=== PATIENT | female | born 1980 | race Caucasian/White ===

== ENCOUNTER 2018-12-28 20:14 | Emergency (ER) | payer OTHER ==
[~2018-12-28] VITALS: Ht 167.6 cm; Wt 81.6 kg
[2018-12-28 20:20] VITALS: BP_SYST 168
--- NOTE | 2018-12-28 20:25 | NUR ---
Patient to ER bed 8 to gown for evaluation. Side rails up. Report given to AUDRA JOSHI.
--- NOTE | 2018-12-28 20:44 | NUR ---
ER at bedside examining patient.
--- NOTE | 2018-12-28 20:44 | NUR ---
patient arrived Aox4 with c/o vomiting all day. patient states she has a history of IBS. patient is a poor historian states vomiting has gone on for 8 years uncontrollable. patient has distant bowelsounds throughout abd. patient is diaphoretic and breathing fast. applied comfort/calming measures. denies loose stool. patient denies drug use of any kind. no other complaint or injury at this time.
[2018-12-28] MEDS ORDERED: ONDANSETRON HCL 4 MG/2 ML VIAL IVP ONE ×2 (21:00→23:00)
[2018-12-28] MEDS ORDERED: NACL 0.9% 1,000 ML IV ONE ×2 (21:00→22:15)
[2018-12-28] MEDS ORDERED: KETOROLAC TROMETHAMINE 30 MG VIAL IVP ONE (21:00)
[2018-12-28] MEDS ORDERED: DIPHENHYDRAMINE INJ 50 MG/ML VIAL IVP ONE (21:15)
--- NOTE | 2018-12-28 21:25 | NUR ---
Dr Mccullough made aware WBC elevated and verify if he wants to order antibiotic.awaiting for new order.
[2018-12-28 21:43] LABS: HEMATOCRIT 43.6 % (36-48); HEMOGLOBIN 14.7 g/dL (12.0-16.0); MEAN CORPUSCULAR HEMOGLOBIN 29 pg (27-31); MEAN CORPUSCULAR HGB CONC 34 % (32-36); MEAN CORPUSCULAR VOLUME 86 fL (79.0-98.0); PLATELET COUNT (AUTO) 409 K/uL (130-430); RED BLOOD CELL COUNT(AUTO) 5.08 MIL/uL (4.2-6.2); RED CELL DISTRIBUTION WIDTH 15.3 % (9.0-15.0); WHITE BLOOD COUNT (AUTO) 22.2 K/uL (4.8-10.8)
[2018-12-28] MEDS ORDERED: MORPHINE 2 MG/ML INJ. SYRINGE IVP ONE (21:45)
[2018-12-28] MEDS ORDERED: METOCLOPRAMIDE HCL 10 MG/2 ML VIAL IVP ONE (21:45)
--- NOTE | 2018-12-28 21:45 | NUR ---
# 22 gauge angiocath placed to right hand. Use of asceptic technique. Opsite placed over site. Blood return noted. Blood for lab drawn from site. Flushed with 10 cc of normal saline. No evidence of infiltration noted. Patient tolerated well.
--- NOTE | 2018-12-28 21:47 | NUR ---
patient is requesting a catheter to obtain urine.
--- NOTE | 2018-12-28 21:48 | NUR ---
patient IV removed due to redness at site. patient tolerated well.
--- NOTE | 2018-12-28 21:49 | NUR ---
# 20 gauge angiocath placed to left wrist. Use of asceptic technique. Opsite placed over site. Blood return noted. Blood for lab drawn from site. Flushed with 10 cc of normal saline. No evidence of infiltration noted. Patient tolerated well.
[2018-12-28 21:53] LABS: CALCIUM 11.4 mg/dL (8.4-11.0); CREATININE 1.2 mg/dL (0.55-1.30); POTASSIUM 3.2 mmol/L (3.5-5.1)
[2018-12-28 21:57] LABS: ALBUMIN 4.6 g/dL (3.4-4.8); TOTAL BILIRUBIN 0.5 mg/dL (0.0-1.0)
[2018-12-28 22:02] LABS: BAND % (MANUAL) 2 % (0-6); BASOPHILS % (MANUAL) 0 % (0-2); EOSINOPHILS % (MANUAL) 0 % (0-7); LYMPHOCYTES % (MANUAL) 9 % (20-46); MONOCYTES % (MANUAL) 1 % (0-11)
[2018-12-28] MEDS ORDERED: PROCHLORPERAZINE EDISYLATE 10 MG/2 ML VIAL IVP ONE (22:30)
[2018-12-28] MEDS ORDERED: TRAMADOL PO (22:44)
[2018-12-28] MEDS ORDERED: PHEN-726 PO (22:44)
[2018-12-28] MEDS ORDERED: PRO40 PO (22:44)
[2018-12-28] MEDS ORDERED: ONDA4TAB5 PO (22:44)
[2018-12-28] MEDS ORDERED: SUCR1TAB78 PO (22:44)
[2018-12-28] MEDS ORDERED: DICY10CA13 PO (22:44)
--- NOTE | 2018-12-28 22:44 | NUR ---
Medication reconciliation completed with information provided by PT. Any prior medication reconciliation on file was reviewed and corrected.
--- NOTE | 2018-12-28 22:50 | NUR ---
patient has stopped vomiting. kellie lcontinue to monitor
--- NOTE | 2018-12-28 23:55 | NUR ---
patient vomiting, requesting medication. provided blanket
--- NOTE | 2018-12-29 | NUR ---
patients mother went home, contact number in patient data information.
--- NOTE | 2018-12-29 01:00 | NUR ---
patient resting leaning over legs. no other complaint or injury at this time.
[2018-12-29] MEDS ORDERED: PROCHLORPERAZINE EDISYLATE 10 MG/2 ML VIAL IVP ONE (01:45)
[2018-12-29] MEDS ORDERED: PANTOPRAZOLE SODIUM 40 MG/VIAL (PROTONIX) IVP ONE (01:45)
[2018-12-29] MEDS ORDERED: LORazepam 2 MG/ML VIAL (FOR ER USE) IVP ONE (01:45)
--- NOTE | 2018-12-29 02:00 | NUR ---
medication provided as ordered.
--- NOTE | 2018-12-29 03:05 | NUR ---
Pt states feeling a little better, but still bad
--- NOTE | 2018-12-29 04:00 | NUR ---
VSS no s/s of acute distress. Resting on gurney with rails up
[2018-12-29 04:44] LABS: BASOPHILS % (AUTO) 0.2 % (0.0-2.0); EOSINOPHILS % (AUTO) 0.1 % (0.0-4.0); HEMATOCRIT 37.3 % (36-48); HEMOGLOBIN 12.7 g/dL (12.0-16.0); LYMPHOCYTES # (AUTO) 0.8 K/uL (1.0-5.5); MEAN CORPUSCULAR HEMOGLOBIN 29 pg (27-31); MEAN CORPUSCULAR HGB CONC 34 % (32-36); MEAN CORPUSCULAR VOLUME 86 fL (79.0-98.0); MONOCYTES # (AUTO) 0.2 K/uL (0.0-1.0); MONOCYTES % (AUTO) 1.3 % (1.7-9.3); NEUTROPHILS # (AUTO) 17.9 K/uL (1.8-7.7); NEUTROPHILS % (AUTO) 94.4 % (40.0-70.0); PLATELET COUNT (AUTO) 289 K/uL (130-430); RED BLOOD CELL COUNT(AUTO) 4.34 MIL/uL (4.2-6.2); RED CELL DISTRIBUTION WIDTH 15.4 % (9.0-15.0); WHITE BLOOD COUNT (AUTO) 18.9 K/uL (4.8-10.8)
[2018-12-29 04:56] LABS: CREATININE 0.9 mg/dL (0.55-1.30); POTASSIUM 3.9 mmol/L (3.5-5.1)
[2018-12-29 05:02] LABS: ALBUMIN 3.7 g/dL (3.4-4.8); TOTAL BILIRUBIN 0.3 mg/dL (0.0-1.0)
--- NOTE | 2018-12-29 05:02 | NUR ---
Dr. Mccullough bedside to update Pt and parent
[2018-12-29] MEDS ORDERED: MORPHINE 2 MG/ML INJ. SYRINGE IVP ONE (05:45)
[2018-12-29] MEDS ORDERED: ONDANSETRON HCL 4 MG/2 ML VIAL IVP ONE (05:45)
[2018-12-29 06:00] VITALS: BP_SYST 140
--- NOTE | 2018-12-29 06:00 | NUR ---
Patient given written and verbal discharge instructions and verbalizes understanding. ER MD discussed with patient the results and treatment provided. Patient in stable condition. ID arm band removed. IV catheter removed intact and dressing applied, no active bleeding. Rx of Compazine and Benadryl given. Patient educated on pain management and to follow up with PMD. Pain Scale 0/10 Opportunity for questions provided and answered. Medication side effect fact sheet provided.
== END 2018-12-29 06:00 | disposition home or self-care (01) ==
LOC: SED 20:14
DX: G43.A0 Cyclical vomiting, in migraine, not intractable (principal); Z79.899 Other long term (current) drug therapy
CPT/HCPCS: 36415; 80053; 81002; 81025; 83605; 83690; 85007; 85025; 85027; 87040; 96361; 96374; 96375 ×2; 96376 ×2; 99283; C9113; J0780 ×2; J1200; J1885; J2060; J2270 ×2; J2405 ×2; J2765; J7030

== ENCOUNTER 2022-07-22 23:28 | Inpatient (IN) | payer OTHER ==
[~2022-07-22] VITALS: Ht 167.6 cm; Wt 71.7 kg
[~2022-07-22 23:28] MED LIST: DICY10CA13 PO; ONDA4TAB5 PO; PHEN-726 PO; PRO40 PO; SUCR1TAB2 PO; TRAMADOL PO
[2022-07-22 23:34] VITALS: BP_SYST 178; BP_SYST 74
[2022-07-23] MEDS ORDERED: HALOPERIDOL LACTATE 5 MG/ML VIAL IVP ONE (00:15)
[2022-07-23] MEDS ORDERED: DIPHENHYDRAMINE INJ 50 MG/ML VIAL IVP ONE (00:15)
[2022-07-23] MEDS ORDERED: NACL 0.9% 1,000 ML IV ONE (00:15)
[2022-07-23] MEDS ORDERED: fentaNYL CITRATE/PF 100 MCG/2 ML AMP IM ONE (02:00)
[2022-07-23 02:33] LABS: CALCIUM 10.1 mg/dL (8.4-11.0); CREATININE 0.98 mg/dL (0.55-1.30)
[2022-07-23 02:37] LABS: HEMATOCRIT 46.2 % (36-48); HEMOGLOBIN 15.5 g/dL (12.0-16.0); MEAN CORPUSCULAR HEMOGLOBIN 29 pg (27-31); MEAN CORPUSCULAR HGB CONC 34 % (32-36); MEAN CORPUSCULAR VOLUME 87 fL (79.0-98.0); PLATELET COUNT (AUTO) 332 K/uL (130-430); RED BLOOD CELL COUNT(AUTO) 5.31 MIL/uL (4.2-6.2); RED CELL DISTRIBUTION WIDTH 14.6 % (9.0-15.0); WHITE BLOOD COUNT (AUTO) 20.7 K/uL (4.8-10.8)
[2022-07-23 02:38] LABS: ALBUMIN 4.5 g/dL (3.4-4.8); TOTAL BILIRUBIN 0.3 mg/dL (0.0-1.0)
[2022-07-23] MEDS ORDERED: PROCHLORPERAZINE EDISYLATE 10 MG/2 ML VIAL IM ONE (03:00)
[2022-07-23 03:22] LABS: BASOPHILS % (MANUAL) 0 % (0-2); EOSINOPHILS % (MANUAL) 0 % (0-7); LYMPHOCYTES % (MANUAL) 3 % (20-46); MONOCYTES % (MANUAL) 1 % (0-11)
[2022-07-23] MEDS ORDERED: D5/0.45 NS 1,000 ML IV ONE ×2 (03:45→05:00)
[2022-07-23] MEDS ORDERED: ONDANSETRON HCL 4 MG/2 ML VIAL IVP PRN ×2 (03:45→13:00)
[2022-07-23 05:03] LABS: INR 1.1 (0.8-1.2); PROTHROMBIN TIME 11.1 SECS (9.5-12.5)
[2022-07-23] MEDS ORDERED: ONDANSETRON 4 MG ODT TAB PO ONE (05:30)
[2022-07-23] MEDS ORDERED: KETOROLAC TROMETHAMINE 30 MG VIAL IM ONE (05:45)
[2022-07-23 05:53] VITALS: BP_SYST 161
[2022-07-23] MEDS ORDERED: KETOROLAC TROMETHAMINE 30 MG VIAL IM SCH (06:30)
[2022-07-23] MEDS: KETOROLAC TROMETHAMINE 30 MG VIAL IM PRN (07:02)
[2022-07-23 08:36] LABS: INR 1.1 (0.8-1.2); PROTHROMBIN TIME 11.4 SECS (9.5-12.5)
[2022-07-23] MEDS: PANTOPRAZOLE SODIUM 40 MG/VIAL (PROTONIX) IVP SCH ×2 (09:00→20:21)
[2022-07-23 10:03] VITALS: BP_SYST 139
[2022-07-23] MEDS ORDERED: LORazepam 2 MG/ML VIAL IVP PRN (13:00)
[2022-07-23 15:08] VITALS: BP_SYST 122
[2022-07-23 18:13] VITALS: BP_SYST 135
[2022-07-23 19:36] VITALS: BP_SYST 140
[2022-07-23] MEDS ORDERED: SUCRALFATE 1 GM TABLET ONE (20:18)
[2022-07-23] MEDS: DICYCLOMINE HCL 10 MG CAPSULE PO SCH (20:21)
[2022-07-23] MEDS: SUCRALFATE 1 GM TABLET PO SCH (20:21)
[2022-07-23 23:41] VITALS: BP_SYST 143
[2022-07-24] MEDS: KETOROLAC TROMETHAMINE 30 MG VIAL IM PRN (02:12)
[2022-07-24] MEDS: D5/0.45 NS 1,000 ML IV SCH ×4 (02:15→22:08)
[2022-07-24] MEDS: SUCRALFATE 1 GM TABLET PO SCH ×2 (06:18→17:33)
[2022-07-24 07:43] LABS: BASOPHILS % (AUTO) 0.1 % (0.0-2.0); EOSINOPHILS # (AUTO) 0.1 K/uL (0.0-0.4); EOSINOPHILS % (AUTO) 0.5 % (0.0-4.0); HEMOGLOBIN 12.9 g/dL (12.0-16.0); LYMPHOCYTES # (AUTO) 2.8 K/uL (1.0-5.5); LYMPHOCYTES % (AUTO) 20.9 % (20.5-51.5); MEAN CORPUSCULAR HEMOGLOBIN 30 pg (27-31); MEAN CORPUSCULAR HGB CONC 34 % (32-36); MEAN CORPUSCULAR VOLUME 87 fL (79.0-98.0); MONOCYTES # (AUTO) 1.1 K/uL (0.0-1.0); MONOCYTES % (AUTO) 8.3 % (1.7-9.3); NEUTROPHILS # (AUTO) 9.3 K/uL (1.8-7.7); NEUTROPHILS % (AUTO) 70.2 % (40.0-70.0); PLATELET COUNT (AUTO) 260 K/uL (130-430); RED BLOOD CELL COUNT(AUTO) 4.36 MIL/uL (4.2-6.2); RED CELL DISTRIBUTION WIDTH 14.7 % (9.0-15.0); WHITE BLOOD COUNT (AUTO) 13.2 K/uL (4.8-10.8)
[2022-07-24 08:00] VITALS: BP_SYST 152
[2022-07-24 08:07] LABS: INR 1.2 (0.8-1.2); PROTHROMBIN TIME 11.8 SECS (9.5-12.5)
[2022-07-24 08:24] LABS: ALBUMIN 3.3 g/dL (3.4-4.8); CALCIUM 9.2 mg/dL (8.4-11.0); CREATININE 0.93 mg/dL (0.55-1.30); PHOSPHORUS 3.5 mg/dL (2.7-4.5); TOTAL BILIRUBIN 0.5 mg/dL (0.0-1.0); TOTAL IRON BIND. CAPACITY 248 ug/dL (250-450)
[2022-07-24] MEDS: PANTOPRAZOLE SODIUM 40 MG/VIAL (PROTONIX) IVP SCH ×2 (08:43→22:06)
[2022-07-24] MEDS: DICYCLOMINE HCL 10 MG CAPSULE PO SCH ×3 (08:43→22:06)
[2022-07-24] MEDS: KETOROLAC TROMETHAMINE 30 MG VIAL IVP PRN ×2 (08:45→14:54)
[2022-07-24] MEDS ORDERED: KCL 40 mEq in 100 mL (PREMIX) 100 ML IV ONE (10:00)
[2022-07-24] MEDS ORDERED: POTASSIUM CHLORIDE 40 MEQ in NS 250 ML IV ONE (11:00)
[2022-07-24 12:00] VITALS: BP_SYST 150
[2022-07-24 16:00] VITALS: BP_SYST 144
[2022-07-24 20:00] VITALS: BP_SYST 139
[2022-07-24 21:24] LABS: BARBITURATE, URINE NEGATIVE (NEG <=200); BENZODIAZEPINE, URINE NEGATIVE (NEG <=150); CANNABINOID, URINE NEGATIVE (NEG <=50); COCAINE, URINE NEGATIVE (NEG <=150); METHAMPHETAMINES SCREEN,URINE NEGATIVE (NEG <=500); OPIATE, URINE NEGATIVE (NEG <=100); PHENCYCLIDINE SCREEN,URINE NEGATIVE (NEG <=25); UR TRICYCLIC ANTIDEPRESSANTS NEGATIVE (NEG <=300); URINE AMPHETAMINE NEGATIVE (NEG <=500); URINE METHADONE NEGATIVE (NEG <=200); URINE OXYCODONE SCREEN NEGATIVE (NEG <=100); URINE PROPOXYPHENE SCREEN NEGATIVE (NEG <=300)
[2022-07-25 00:17] VITALS: BP_SYST 158
[2022-07-25] MEDS: KETOROLAC TROMETHAMINE 30 MG VIAL IVP PRN ×2 (01:22→07:56)
[2022-07-25] MEDS ORDERED: TEMAZEPAM 15 MG CAPSULE PO PRN (03:15)
[2022-07-25] MEDS ORDERED: cefTRIAXone 1 GM in D5W 50 ML IV SCH (04:45)
[2022-07-25] MEDS: SUCRALFATE 1 GM TABLET PO SCH (06:40)
[2022-07-25 07:06] LABS: ALPHA-1-ANTITRYPSIN, S 144 mg/dL (101-187)
[2022-07-25 07:34] VITALS: BP_SYST 140
[2022-07-25 07:53] LABS: BASOPHILS % (AUTO) 0.1 % (0.0-2.0); EOSINOPHILS # (AUTO) 0.1 K/uL (0.0-0.4); EOSINOPHILS % (AUTO) 0.5 % (0.0-4.0); HEMATOCRIT 37.7 % (36-48); HEMOGLOBIN 12.6 g/dL (12.0-16.0); LYMPHOCYTES # (AUTO) 2.7 K/uL (1.0-5.5); LYMPHOCYTES % (AUTO) 21.9 % (20.5-51.5); MEAN CORPUSCULAR HEMOGLOBIN 30 pg (27-31); MEAN CORPUSCULAR HGB CONC 33 % (32-36); MEAN CORPUSCULAR VOLUME 89 fL (79.0-98.0); MONOCYTES # (AUTO) 0.9 K/uL (0.0-1.0); NEUTROPHILS # (AUTO) 8.8 K/uL (1.8-7.7); NEUTROPHILS % (AUTO) 70.5 % (40.0-70.0); PLATELET COUNT (AUTO) 222 K/uL (130-430); RED BLOOD CELL COUNT(AUTO) 4.23 MIL/uL (4.2-6.2); RED CELL DISTRIBUTION WIDTH 14.6 % (9.0-15.0); WHITE BLOOD COUNT (AUTO) 12.5 K/uL (4.8-10.8)
[2022-07-25] MEDS ORDERED: METOCLOPRAMIDE HCL 10 MG/2 ML VIAL IVP ONE (08:00)
[2022-07-25 08:06] LABS: ANTI NUCLEAR AB WITH REFLEX Negative (Negative)
[2022-07-25] MEDS: PANTOPRAZOLE SODIUM 40 MG/VIAL (PROTONIX) IVP SCH (08:06)
[2022-07-25 09:10] VITALS: BP_SYST 136
[2022-07-25] MEDS: D5/0.45 NS 1,000 ML IV SCH (09:12)
[2022-07-25] MEDS ORDERED: POTASSIUM CHLORIDE 20 MEQ TAB.PRT.SR PO ONE ×2 (11:30→11:45)
[2022-07-25 12:12] VITALS: BP_SYST 140
[2022-07-25] MEDS: DICYCLOMINE HCL 10 MG CAPSULE PO SCH (12:15)
[2022-07-25 13:05] VITALS: BP_SYST 140
[2022-07-25] MEDS ORDERED: PRO40 PO ×3 (13:43→19:47)
[2022-07-25] MEDS ORDERED: METOCLOPRAMIDE HCL 10 MG/2 ML VIAL IVP SCH (14:00)
[2022-07-25] MEDS ORDERED: METO-290 PO (14:55)
[2022-07-25] MEDS ORDERED: TRAMADOL PO (19:47)
[2022-07-25] MEDS ORDERED: DICY10CA13 PO (19:47)
[2022-07-25] MEDS ORDERED: SUCR1TAB2 PO ×2 (19:47)
[2022-07-25] MEDS ORDERED: TRAM50TA2 PO ×2 (19:47)
[2022-07-25] MEDS ORDERED: PHEN-726 PO ×2 (19:47)
[2022-07-26 13:07] LABS: HEPATITIS A AB, IgM Negative (Negative); HEPATITIS B CORE AB, IgM Negative (Negative); HEPATITIS B SURFACE AG Negative (Negative)
[2022-07-27 13:06] LABS: ANTI-SMOOTH MUSCLE AB 9 Units (0-19); ATYPICAL pANCA <1:20 titer (Neg:<1:20); CYTOPLASMIC (C-ANCA) <1:20 titer (Neg:<1:20); CYTOPLASMIC (P-ANCA) <1:20 titer (Neg:<1:20)
[2022-08-10 12:03] LABS: HEPATITIS C VIRUS AB Negative <0.8 s/co (0.0-0.7)
== END 2022-07-25 15:25 | disposition home or self-care (01) | DRG 249 ==
LOC: SED 23:28 → SMU 07-23 04:57
PROVIDERS: ADMIT Preventive Medicine Preventive Medicine/Occupational Environmental Medicine; ATTEND Preventive Medicine Preventive Medicine/Occupational Environmental Medicine
DX: R11.15 Cyclical vomiting syndrome unrelated to migraine (principal); R65.10 Systemic inflammatory response syndrome (SIRS) of non-infectious origin without acute organ dysfunction; E88.09 Other disorders of plasma-protein metabolism, not elsewhere classified; K58.9 Irritable bowel syndrome, unspecified; K21.00 Gastro-esophageal reflux disease with esophagitis, without bleeding; R10.13 Epigastric pain; R73.9 Hyperglycemia, unspecified; Z20.822 Contact with and (suspected) exposure to COVID-19; R74.01 Elevation of levels of liver transaminase levels; E87.6 Hypokalemia; Z90.49 Acquired absence of other specified parts of digestive tract; Z79.899 Other long term (current) drug therapy
CPT/HCPCS: 36415; 71045; 76700-TC; 80053; 80074; 80307; 82103; 82977; 83516; 83540; 83550; 83690; 83735; 84100; 85007; 85025; 85027; 85610-TC; 85730-TC; 86038; 86256; 86803; 87040; 93005; 96361; 96372; 96374; 96375; 99285; C9113; J0696; J1200; J1630; J1885; J2405; J2765; J3010; J3480; J7050; J7060

== ENCOUNTER 2022-08-15 01:10 | Inpatient (IN) | payer OTHER ==
[~2022-08-15] VITALS: Ht 167.6 cm; Wt 64.9 kg
[~2022-08-15 01:10] MED LIST changes: +METO-290 PO; -ONDA4TAB5 PO; +TRAM50TA2 PO; -TRAMADOL PO
[2022-08-15 01:29] VITALS: BP_SYST 142
--- NOTE | 2022-08-15 01:34 | NUR ---
PT BIB MOTHER FROM HOME, AMBULATED TO BED 8. PT A&Ox4, ABLE TO MAKE NEEDS KNOWN. PT C/O OF AND ON ABD PAIN AND VOMITING X6 WEEKS. PT RATES PAIN 10/10. PT DENIES SOB AND CHEST PAIN. PT DENIES FEVER/CHILLS. PT WAS RECENTLY SEEN AT [facility]. PT HAS A HISTORY OF GERD AND IBS. SAFETY MEASURES IN PLACE.
--- NOTE | 2022-08-15 01:34 | NUR ---
ER Dr. Villegas at bedside examining patient.
--- NOTE | 2022-08-15 01:38 | NUR ---
Patient to ER bed 8 to gown for evaluation. Side rails up. Report given to alda baig.
[2022-08-15] MEDS ORDERED: HALOPERIDOL LACTATE 5 MG/ML VIAL IM ONE (01:45)
[2022-08-15] MEDS ORDERED: MORPHINE 4 MG INJ. 4 MG/ML VIAL IM ONE (02:45)
[2022-08-15 03:28] LABS: CALCIUM 10.5 mg/dL (8.4-11.0); CREATININE 0.83 mg/dL (0.55-1.30)
[2022-08-15] MEDS ORDERED: NACL 0.9% 1,000 ML IV ONE (03:30)
[2022-08-15] MEDS ORDERED: ONDANSETRON HCL 4 MG/2 ML VIAL IVP ONE ×2 (03:30→04:15)
[2022-08-15 03:33] LABS: ALBUMIN 4.5 g/dL (3.4-4.8)
[2022-08-15 03:45] LABS: BASOPHILS % (AUTO) 0.1 % (0.0-2.0); EOSINOPHILS % (AUTO) 0.1 % (0.0-4.0); HEMATOCRIT 44.4 % (36-48); HEMOGLOBIN 15.6 g/dL (12.0-16.0); LYMPHOCYTES # (AUTO) 1.2 K/uL (1.0-5.5); LYMPHOCYTES % (AUTO) 7.6 % (20.5-51.5); MEAN CORPUSCULAR HEMOGLOBIN 30 pg (27-31); MEAN CORPUSCULAR HGB CONC 35 % (32-36); MEAN CORPUSCULAR VOLUME 86 fL (79.0-98.0); MONOCYTES # (AUTO) 0.6 K/uL (0.0-1.0); NEUTROPHILS # (AUTO) 14.3 K/uL (1.8-7.7); NEUTROPHILS % (AUTO) 88.2 % (40.0-70.0); PLATELET COUNT (AUTO) 376 K/uL (130-430); RED BLOOD CELL COUNT(AUTO) 5.18 MIL/uL (4.2-6.2); RED CELL DISTRIBUTION WIDTH 15.4 % (9.0-15.0); WHITE BLOOD COUNT (AUTO) 16.2 K/uL (4.8-10.8)
[2022-08-15] MEDS ORDERED: KCL 40 mEq in 100 mL (PREMIX) 100 ML IV ONE (03:45)
[2022-08-15] MEDS ORDERED: KCL 20 mEq in 100 mL (PREMIX) 200 ML IV ONE (04:01)
[2022-08-15] MEDS ORDERED: DIPHENHYDRAMINE INJ 50 MG/ML VIAL IVP ONE (04:15)
[2022-08-15] MEDS ORDERED: MAG HYDROX/AL HYDROX/SIMETH 30 ML, LIDOCAINE VISCOUS 2% 15ML (PO) 15 ML, DICYCLOMINE HC... PO ONE ×3 (04:15)
[2022-08-15] MEDS ORDERED: ONDANSETRON HCL 4 MG/2 ML VIAL IVP PRN (04:30)
[2022-08-15] MEDS ORDERED: NS 500 ML IV ONE (04:30)
--- NOTE | 2022-08-15 04:52 | NUR ---
Admit bed requested Patient will be admitted to care of . Admitted to MED-SURGE unit. Diagnosis VOMITING AND ABD PAIN Inpatient (Yes or No) YES Observation (Yes or No) NO Orientation concerns or request close to nursing station (Yes or No) NO Covid Status PENDING On vent or bipap NO Isolation requirements NO Needs a sitter NO From Home (Yes or if No enter name of facility) HOME Requires Dialysis (Yes or No) NO Med Rec Completed (Yes of No) UNABLE TO OBTAIN PT'S MOTHER LEFT FOR THE NIGHT. PT STATES WILL GET MED REC IN THE MORNING.
--- NOTE | 2022-08-15 05:18 | NUR ---
UNABLE TO RECONCILE MEDS PT'S MOTHER TOOK MED LIST HOME AND PT DID NOT WANT NURSE TO CALL MOTHER. PT STATED SHE WILL PROVIDE MED LIST IN THE MORNING.
--- NOTE | 2022-08-15 05:32 | NUR ---
PT IS COVID NEGATIVE
[2022-08-15] MEDS: MORPHINE 2 MG/ML INJ. SYRINGE IVP PRN ×3 (06:33→21:44)
--- NOTE | 2022-08-15 07:15 | NUR ---
PT RESTING WITH EYES CLOSED, NO S/S OF DISCOMFORT NOTED AT THIS TIME. ENDORSED PT AND CARE TO ONCOMING NURSE ADI SERRATO
[2022-08-15] MEDS ORDERED: MORPHINE 2 MG/ML INJ. SYRINGE IVP PRN (07:45)
[2022-08-15] MEDS ORDERED: MUPIROCIN 2% TOPICAL OINTMENT 22 GM NS PRN (07:45)
[2022-08-15] MEDS ORDERED: MAGNESIUM SULFATE 50 ML IV PRN (07:45)
[2022-08-15] MEDS ORDERED: ACETAMINOPHEN 325 MG TABLET PO PRN ×2 (07:45→08:15)
[2022-08-15] MEDS ORDERED: DOCUSATE SODIUM 100 MG CAPSULE PO PRN (07:45)
--- NOTE | 2022-08-15 08:31 | NUR ---
Patient will be admitted to care of DR HERNANDEZ. Admitted to MED SURGE unit. Will go to room 110B. Belongings list completed. Complete and up to date summary report printed. SBAR report to be given at bedside with opportunity for questions.
[2022-08-15 08:45] VITALS: BP_SYST 155
--- NOTE | 2022-08-15 09:00 | NUR ---
ADMIT PT Received report from Emma RN - Resource RN on floor at this time. Admission assessment being completed at this time. Pt's IV in left Forearm intact and patent. Pt still feels nauseated and feels like she is going to have an emesis at this time. Pt was oriented to room and nursing routines/procedures. Questions/concerns were answered. Call light within reach. Bed in low position and bed alarm on. Side rails raised.
--- NOTE | 2022-08-15 09:15 | NUR ---
Note Dr Cheek (GI) was at pt's bedside assessing pt and checking abdomen. Pt does not remember any of the hospitals or results of tests done, all pt remembers was the tests all were negative for any proper diagnosis. The two hospitals that pt remembers she was at is 1) [facility] and 2) [facility].
[2022-08-15] MEDS: PANTOPRAZOLE SODIUM 40 MG/VIAL (PROTONIX) IVP SCH (09:40)
[2022-08-15] MEDS ORDERED: ONDANSETRON HCL 4 MG/2 ML VIAL IM PRN (09:45)
[2022-08-15] MEDS: PIPERACILLIN/TAZO 3.375/DEX-IS 50 ML IV SCH ×3 (10:56→17:49)
[2022-08-15 11:32] LABS: INR 1.9 (0.8-1.2); PROTHROMBIN TIME 18.7 SECS (9.5-12.5)
[2022-08-15 11:35] LABS: ACETAMINOPHEN < 1 ug/mL (1-30)
[2022-08-15] MEDS: METOCLOPRAMIDE HCL 10 MG/2 ML VIAL IVP PRN ×2 (11:37→21:43)
[2022-08-15 11:44] LABS: TOTAL IRON BIND. CAPACITY 238 ug/dL (250-450)
[2022-08-15 12:00] VITALS: BP_SYST 145
--- NOTE | 2022-08-15 12:00 | NUR ---
Note Request for medical records was sent to these two [facility] (faxed by [employer]).
--- NOTE | 2022-08-15 14:50 | NUR ---
K=3L Potassium 40meq PO was held - not given as pt is NPO, due to frequent emesis and nausea, even though Zofran IVP and Reglan IVP were given throughout the shift.
[2022-08-15 16:00] VITALS: BP_SYST 131
[2022-08-15 17:26] LABS: BILIRUBIN,URINE NEGATIVE (NEGATIVE); BLOOD, URINE NEGATIVE (NEGATIVE); CLARITY/URINE CLEAR (CLEAR); COLOR,URINE YELLOW (YELLOW); GLUCOSE,URINE NEGATIVE (NEGATIVE); KETONES,URINE 2+ (NEGATIVE); LEUKOCYTE ESTERASE ,URINE NEGATIVE (NEGATIVE); NITRITE, URINE NEGATIVE (NEGATIVE); PROTEIN URINE NEGATIVE (NEGATIVE); UROBILINOGEN,URINE 0.2 (0.2-1.0)
[2022-08-15 17:54] LABS: BARBITURATE, URINE NEGATIVE (NEG <=200); BENZODIAZEPINE, URINE NEGATIVE (NEG <=150); CANNABINOID, URINE NEGATIVE (NEG <=50); COCAINE, URINE NEGATIVE (NEG <=150); METHAMPHETAMINES SCREEN,URINE NEGATIVE (NEG <=500); OPIATE, URINE POSITIVE (NEG <=100); PHENCYCLIDINE SCREEN,URINE NEGATIVE (NEG <=25); UR TRICYCLIC ANTIDEPRESSANTS NEGATIVE (NEG <=300); URINE AMPHETAMINE NEGATIVE (NEG <=500); URINE METHADONE NEGATIVE (NEG <=200); URINE OXYCODONE SCREEN NEGATIVE (NEG <=100); URINE PROPOXYPHENE SCREEN NEGATIVE (NEG <=300)
--- NOTE | 2022-08-15 18:10 | NUR ---
End of shift. Pt resting in bed, no severe abdominal pain noted. Pt able to use restroom independently. IV in LFA intact and patent infusing IVPB well. Pt prefers to wear her own clothes and not wear hospital gown at this time. No SOB/resp distress or pain/discomfort was noted. Bed in low position and side rails raised. Pt maintained with safety precautions all shift. Call light within reach.
[2022-08-15 20:00] VITALS: BP_SYST 138
--- NOTE | 2022-08-15 20:00 | NUR ---
RECEIVED PT IN BED, AOX4, EVEN AND UNLABORED, DENIED SOB, CP OR ANY PAIN ATT, NO N/V, IN STABLE CONDITION. WILL CONTINUE WITH POC
--- NOTE | 2022-08-15 21:32 | NUR ---
PAGED PAGED DOCTOR HERNANDEZ
[2022-08-15] MEDS ORDERED: LORazepam 2 MG/ML VIAL IVP ONE (23:30)
--- NOTE | 2022-08-16 00:02 | NUR ---
HIGH ALERT NOTE: Called Vinita Bella at [phone] identified within the medical roster to verify physician authenticity.
[2022-08-16 00:05] VITALS: BP_SYST 130
[2022-08-16] MEDS ORDERED: SERT-436 (04:58)
[2022-08-16] MEDS ORDERED: VIS25 PO (05:02)
[2022-08-16] MEDS ORDERED: LORA-258 PO (05:06)
[2022-08-16] MEDS ORDERED: ONDA-8 TL (05:09)
[2022-08-16] MEDS: PIPERACILLIN/TAZO 3.375/DEX-IS 50 ML IV SCH ×2 (05:44)
--- NOTE | 2022-08-16 06:30 | NUR ---
PT IN BED, AOX4, DENIED ANY SOB, CP, N/V, SALINE LOCK TO LFA, VOIDING AND NO BM THIS SHIFT, WILL ENDORSE TO AM SHIFT
[2022-08-16 07:43] LABS: BASOPHILS % (AUTO) 0.5 % (0.0-2.0); EOSINOPHILS # (AUTO) 0.1 K/uL (0.0-0.4); EOSINOPHILS % (AUTO) 1.3 % (0.0-4.0); HEMATOCRIT 38.6 % (36-48); HEMOGLOBIN 13.3 g/dL (12.0-16.0); LYMPHOCYTES # (AUTO) 2.6 K/uL (1.0-5.5); MEAN CORPUSCULAR HEMOGLOBIN 30 pg (27-31); MEAN CORPUSCULAR HGB CONC 34 % (32-36); MEAN CORPUSCULAR VOLUME 88 fL (79.0-98.0); MONOCYTES # (AUTO) 0.6 K/uL (0.0-1.0); NEUTROPHILS # (AUTO) 4.6 K/uL (1.8-7.7); NEUTROPHILS % (AUTO) 57.2 % (40.0-70.0); PLATELET COUNT (AUTO) 262 K/uL (130-430); RED BLOOD CELL COUNT(AUTO) 4.37 MIL/uL (4.2-6.2); RED CELL DISTRIBUTION WIDTH 15.1 % (9.0-15.0)
[2022-08-16 07:53] LABS: CALCIUM 9.1 mg/dL (8.4-11.0); CREATININE 0.68 mg/dL (0.55-1.30)
[2022-08-16 08:00] VITALS: BP_SYST 107
[2022-08-16 08:07] LABS: ALPHA-1-ANTITRYPSIN, S 149 mg/dL (101-187); FERRITIN 97 ng/mL (15-150); HEPATITIS A AB, IgM Negative (Negative); HEPATITIS B CORE AB, IgM Negative (Negative); HEPATITIS B SURFACE AG Negative (Negative)
[2022-08-16] MEDS: PANTOPRAZOLE SODIUM 40 MG/VIAL (PROTONIX) IVP SCH (09:34)
--- NOTE | 2022-08-16 10:19 | NUR ---
SPOKE WITH DR HERNANDEZ, PATIENT IS NPO AND NEED A NEW ORDER FOR POTASSIUM. PER DR HERNANDEZ, NPO EXCEPT FOR MEDS. NEW ORDERS PLACED
[2022-08-16 11:07] LABS: ANTI NUCLEAR AB WITH REFLEX Negative (Negative)
[2022-08-16] MEDS: POTASSIUM CHLORIDE 20 MEQ TAB.PRT.SR PO PRN (11:13)
--- NOTE | 2022-08-16 11:23 | NUR ---
paged Dr clifford regarding NPO status, pt request for psych consult, and antianxiety medication
[2022-08-16 11:31] VITALS: BP_SYST 110
[2022-08-16] MEDS: NACL 0.9% 1,000 ML IV SCH ×2 (12:49→21:33)
[2022-08-16 15:53] VITALS: BP_SYST 126
--- NOTE | 2022-08-16 17:00 | NUR ---
paged GI consult Dr Cheek. pt requesting to eat. states she does not feel nauseated
--- NOTE | 2022-08-16 17:50 | NUR ---
CONSULTATION PAGED/CALLED Reason for Consultation: [] ANXIETY Person Who was Notified: [] [place] Consulting Physician: [] DR NOHEMI SERRANO Design Printer Balloon Specialty: [] PSYCH Ordering Physician: [] DR HERNANDEZ
--- NOTE | 2022-08-16 18:30 | NUR ---
no return call from Dr Cheek. Paged Dr Nelson (production welding supervisor)
--- NOTE | 2022-08-16 18:53 | NUR ---
called and spoke with Dr Joyce. aware that telepsych did not return call, new order for ativan 1mg ivp once prn anxiety. states ok to have clear liquids until midnight, then NPO in preparation for MRCP. pt requesting std/sti testing. Dr Joyce states she will order those tests tomorrow morning.
[2022-08-16] MEDS ORDERED: LORazepam 2 MG/ML VIAL IVP ONE (19:00)
[2022-08-16 19:50] VITALS: BP_SYST 131
--- NOTE | 2022-08-16 19:50 | NUR ---
RECEIVED PT IN BED, AOX4, EVEN AND UNLABORED, DENIED SOB, CP OR ANY PAIN ATT, NO N/V, IN STABLE CONDITION. tolerating clear LIQUID DIET, NPO FROM [facility] FOR MRCP, PT INFORMED, VERBALIZED UNDERSTANDING, WILL CONTINUE WITH POC
[2022-08-17 00:18] VITALS: BP_SYST 119
[2022-08-17] MEDS: NACL 0.9% 1,000 ML IV SCH ×2 (06:25→16:38)
--- NOTE | 2022-08-17 06:27 | NUR ---
PT IN BED, AOX4, EVEN AND UNLABORED, DENIED SOB, CP, N/V OR ANY PAIN ATT. NPO FROM [facility] FOR MRCP, PT INFORMED, VERBALIZED UNDERSTANDING, NO CHANGES DURING SHIFT, WILL ENDORSE TO AM SHIFT Addendum: 08/17/22 at 0631 by [facility], ADI JOSHI ON IVF NS AT 100 TO LFA
--- NOTE | 2022-08-17 07:33 | NUR ---
LEFT A VOICE MESSAGE WITH MEDICAL RECORDS, RE: GI PROCEDURES AND CONSULTATION PER ATTENDING MD'S REQUEST, DR HERNANDEZ.
[2022-08-17 07:35] LABS: BASOPHILS % (AUTO) 0.4 % (0.0-2.0); EOSINOPHILS # (AUTO) 0.1 K/uL (0.0-0.4); EOSINOPHILS % (AUTO) 1.1 % (0.0-4.0); HEMATOCRIT 39.4 % (36-48); HEMOGLOBIN 13.4 g/dL (12.0-16.0); LYMPHOCYTES # (AUTO) 2.1 K/uL (1.0-5.5); LYMPHOCYTES % (AUTO) 26.9 % (20.5-51.5); MEAN CORPUSCULAR HEMOGLOBIN 30 pg (27-31); MEAN CORPUSCULAR HGB CONC 34 % (32-36); MEAN CORPUSCULAR VOLUME 87 fL (79.0-98.0); MONOCYTES # (AUTO) 0.5 K/uL (0.0-1.0); MONOCYTES % (AUTO) 6.9 % (1.7-9.3); NEUTROPHILS # (AUTO) 5.1 K/uL (1.8-7.7); NEUTROPHILS % (AUTO) 64.7 % (40.0-70.0); PLATELET COUNT (AUTO) 268 K/uL (130-430); RED BLOOD CELL COUNT(AUTO) 4.51 MIL/uL (4.2-6.2); RED CELL DISTRIBUTION WIDTH 15.1 % (9.0-15.0); WHITE BLOOD COUNT (AUTO) 7.8 K/uL (4.8-10.8)
[2022-08-17 07:45] LABS: ALBUMIN 2.9 g/dL (3.4-4.8); BILIRUBIN,DIRECT 0.2 mg/dL (0.0-0.3); CALCIUM 8.8 mg/dL (8.4-11.0); CREATININE 0.56 mg/dL (0.55-1.30); TOTAL BILIRUBIN 0.5 mg/dL (0.0-1.0)
[2022-08-17 08:00] VITALS: BP_SYST 125
[2022-08-17] MEDS: PANTOPRAZOLE SODIUM 40 MG/VIAL (PROTONIX) IVP SCH (08:20)
[2022-08-17 11:23] VITALS: BP_SYST 119
--- NOTE | 2022-08-17 14:35 | NUR ---
Mail Technician re: disability assistance Met with patient at bedside this afternoon. The patient is a 42 year old female who is alert and oriented. I introduced myself and she was in agreement to speaking with me. The patient resides in a single-story home with her father and her son. Per patient, she was using no assistive devices. She was independent with her ADLs, able to drive, and still working. She does not have a Power of Ophthalmic Medical Technologist. She states her support are her parents and her son who is not a minor. Her PCP is Dr. Reardon in [place]. The discharge plan is to return home with her father and son. The patient was advised that prior to discharge, she would be assessed for appropriate needs and services. Per patient, there is a potential need for home health services. The patient is in agreement to the discharge plan. At time of discharge, the patient states her parents or her son will transport her home. Prior to leaving the room, I inquired about the patient's need for Social Security Disability. Per patient, she has not been working for the past two months due to the clinical issues she has been dealing with. She stated she is looking to apply for SSD. I reviewed SSD information and the application with her. I advised her of the process and explained that her PCP will need to complete a section to support the need for SSD. I left the patient with information on SSD and an application to apply for SSD. The patient was receptive of the information provided. At this time, there is nothing else needed from Mail Technician.
[2022-08-17 15:24] VITALS: BP_SYST 128
--- NOTE | 2022-08-17 17:25 | NUR ---
Telepsyche , Dr Avery Nelson spoke with pt via zoom.
[2022-08-17] MEDS ORDERED: SERTRALINE HCL 50 MG TABLET PO ONE (18:00)
[2022-08-17 20:00] VITALS: BP_SYST 136
[2022-08-17] MEDS ORDERED: LORazepam 2 MG/ML VIAL IVP ONE (20:30)
[2022-08-18 00:09] VITALS: BP_SYST 133
--- NOTE | 2022-08-18 06:51 | NUR ---
pt has been npo since midnight for mrcp. pt educated not to drink/eat anything. pt verbalized understanding
[2022-08-18] MEDS: NACL 0.9% 1,000 ML IV SCH ×3 (06:54→23:38)
[2022-08-18 07:50] LABS: BASOPHILS % (AUTO) 0.4 % (0.0-2.0); EOSINOPHILS # (AUTO) 0.1 K/uL (0.0-0.4); EOSINOPHILS % (AUTO) 1.5 % (0.0-4.0); HEMATOCRIT 40.6 % (36-48); HEMOGLOBIN 13.8 g/dL (12.0-16.0); LYMPHOCYTES # (AUTO) 2.1 K/uL (1.0-5.5); LYMPHOCYTES % (AUTO) 29.2 % (20.5-51.5); MEAN CORPUSCULAR HEMOGLOBIN 30 pg (27-31); MEAN CORPUSCULAR HGB CONC 34 % (32-36); MEAN CORPUSCULAR VOLUME 88 fL (79.0-98.0); MONOCYTES # (AUTO) 0.6 K/uL (0.0-1.0); MONOCYTES % (AUTO) 8.8 % (1.7-9.3); NEUTROPHILS # (AUTO) 4.3 K/uL (1.8-7.7); NEUTROPHILS % (AUTO) 60.1 % (40.0-70.0); PLATELET COUNT (AUTO) 267 K/uL (130-430); RED BLOOD CELL COUNT(AUTO) 4.63 MIL/uL (4.2-6.2); RED CELL DISTRIBUTION WIDTH 14.8 % (9.0-15.0); WHITE BLOOD COUNT (AUTO) 7.1 K/uL (4.8-10.8)
[2022-08-18 08:06] LABS: HEPATITIS A AB, IgM Negative (Negative); HEPATITIS B CORE AB, IgM Negative (Negative); HEPATITIS B SURFACE AG Negative (Negative)
[2022-08-18 08:11] VITALS: BP_SYST 129
[2022-08-18 08:14] LABS: BILIRUBIN,DIRECT 0.2 mg/dL (0.0-0.3); CREATININE 0.57 mg/dL (0.55-1.30); TOTAL BILIRUBIN 0.5 mg/dL (0.0-1.0)
--- NOTE | 2022-08-18 08:21 | NUR ---
ASSUMED CARE OF PATIENT AT THIS TIME. A/O X 4. VSS, AFEBRILE. RESPIRATIONS EVEN AND UNLABORED. O2 SAT 99% ON ROOM AIR. IVF INFUSING WITH NO REDNESS OR IRRITATION TO SITE. DENIES PAIN AT THIS TIME. NPO FOR MRCP TODAY. NO ACUTE DISTRESS NOTED. WILL CONTINUE TO MONITOR FOR SAFETY. Gabriela BILL RN.
[2022-08-18] MEDS: PANTOPRAZOLE SODIUM 40 MG/VIAL (PROTONIX) IVP SCH (08:47)
[2022-08-18] MEDS: SERTRALINE HCL 50 MG TABLET PO SCH (08:48)
[2022-08-18 12:00] VITALS: BP_SYST 127
[2022-08-18 16:00] VITALS: BP_SYST 125
[2022-08-18] MEDS: ONDANSETRON HCL 4 MG/2 ML VIAL IVP PRN (19:25)
[2022-08-18] MEDS: MORPHINE 2 MG/ML INJ. SYRINGE IVP PRN (19:25)
[2022-08-18 19:30] VITALS: BP_SYST 143
--- NOTE | 2022-08-18 19:30 | NUR ---
PM ASSESSMENT; -Patient is awake, alert, oriented X4. Patient oriented to hospital room, call light, toileting, pain management and safety-teach back done. Pt is c/o nausea & vomiting, abd pain. Discussed poc, pain mgmt, n/v, pt and mother verbalized understanding. Fall precaution in place. Explained to pt that pain mgmt is given q 4hrs prn. Morphine & Zofran given at 1925 by day shift nurse. All safety measures in place. Bed alarmed, side rails x3. Call light within reach. Cont to monitor pt.
[2022-08-18] MEDS: METOCLOPRAMIDE HCL 10 MG/2 ML VIAL IVP PRN (20:06)
--- NOTE | 2022-08-18 21:39 | NUR ---
PAGED DR. HERNANDEZ, H ) NO ANSWER LEFT MESSAGE WITH NUMBER TO CALLBACK -Pt is anxious, need Ativan for anxiety and pt is still c/o of abd pain after received pain med at 1925. Waiting for md to callback.
--- NOTE | 2022-08-18 22:17 | NUR ---
NOTES; 2ND PAGED Jordyn HOGUE ) NO ANSWER LEFT MESSAGE WITH NUMBER TO CALLBACK.
--- NOTE | 2022-08-18 23:20 | NUR ---
NOTES; NOTIFIED Jordyn HOGUE REGARDING PT IS C/O OF N/V, ABD PAIN 02/13. INFORMED MD THAT PT SAID THAT MORPHINE DOESN'T HELP HER AND SHE WANTS ATIVAN FOR HER ANXIETY. MD ORDERED TORADOL 15MG IVP X1 FOR PAIN AND ATIVAN 1MG IVP Q 4 PRN FOR ANXIETY PER MD.
[2022-08-18] MEDS ORDERED: KETOROLAC TROMETHAMINE 15 MG VIAL IVP ONE (23:30)
[2022-08-18] MEDS: LORazepam 2 MG/ML VIAL IVP PRN (23:33)
--- NOTE | 2022-08-19 | NUR ---
ROUNDS; -Pt is asleep comfortably.No s/s any pain,sob,or any acute distress noted. IVF infusing well,no s/s any infiltration noted. All safety measures in place. Call light w/in reach. Cont to monitor pt.
[2022-08-19 00:11] VITALS: BP_SYST 145
[2022-08-19] MEDS: METOCLOPRAMIDE HCL 10 MG/2 ML VIAL IVP PRN (02:06)
[2022-08-19] MEDS: MORPHINE 2 MG/ML INJ. SYRINGE IVP PRN ×2 (02:07→08:53)
--- NOTE | 2022-08-19 02:07 | NUR ---
NOTES; NV/PAIN MGMT -Pt just returned from bathroom and went to bed safely with steady gaits. Pt is c/o n/v and abd pain gave Morphine IVP & Reglan IVP. Cont to monitor pt.
[2022-08-19] MEDS: ONDANSETRON HCL 4 MG/2 ML VIAL IVP PRN ×2 (04:46→21:10)
[2022-08-19] MEDS: LORazepam 2 MG/ML VIAL IVP PRN ×2 (04:46→21:09)
--- NOTE | 2022-08-19 06:33 | NUR ---
CLOSING NOTES; -Pt is asleep. No s/s acute distress noted. All safety measures in place. Bed alarmed, side rails x3. Call light within reach. Will endorse to next nurse to cont care.
[2022-08-19 07:30] VITALS: BP_SYST 129
[2022-08-19 08:47] LABS: BASOPHILS % (AUTO) 0.2 % (0.0-2.0); EOSINOPHILS % (AUTO) 0.2 % (0.0-4.0); HEMATOCRIT 43.5 % (36-48); HEMOGLOBIN 14.9 g/dL (12.0-16.0); LYMPHOCYTES # (AUTO) 1.3 K/uL (1.0-5.5); LYMPHOCYTES % (AUTO) 13.2 % (20.5-51.5); MEAN CORPUSCULAR HEMOGLOBIN 30 pg (27-31); MEAN CORPUSCULAR HGB CONC 34 % (32-36); MEAN CORPUSCULAR VOLUME 87 fL (79.0-98.0); MONOCYTES # (AUTO) 0.6 K/uL (0.0-1.0); MONOCYTES % (AUTO) 5.9 % (1.7-9.3); NEUTROPHILS % (AUTO) 80.5 % (40.0-70.0); PLATELET COUNT (AUTO) 353 K/uL (130-430); RED BLOOD CELL COUNT(AUTO) 4.99 MIL/uL (4.2-6.2); RED CELL DISTRIBUTION WIDTH 15.3 % (9.0-15.0)
[2022-08-19] MEDS: SERTRALINE HCL 50 MG TABLET PO SCH (08:51)
[2022-08-19] MEDS: PANTOPRAZOLE SODIUM 40 MG/VIAL (PROTONIX) IVP SCH (08:51)
[2022-08-19 09:38] LABS: ALBUMIN 3.6 g/dL (3.4-4.8); BILIRUBIN,DIRECT 0.1 mg/dL (0.0-0.3); CALCIUM 9.7 mg/dL (8.4-11.0); CREATININE 0.64 mg/dL (0.55-1.30); TOTAL BILIRUBIN 0.5 mg/dL (0.0-1.0)
[2022-08-19] MEDS: NACL 0.9% 1,000 ML IV SCH ×2 (11:00→21:08)
[2022-08-19 11:31] VITALS: BP_SYST 125
[2022-08-19] MEDS ORDERED: METOCLOPRAMIDE HCL 10 MG/2 ML VIAL IVP ONE (14:45)
[2022-08-19] MEDS: METOCLOPRAMIDE HCL 10 MG/2 ML VIAL IVP SCH ×2 (17:15→23:23)
[2022-08-19 17:25] VITALS: BP_SYST 137
[2022-08-19 19:25] VITALS: BP_SYST 114
--- NOTE | 2022-08-19 19:25 | NUR ---
PM ASSESSMENT; -Patient is awake, alert, oriented X4. Patient oriented to hospital room, call light, toileting, pain management and safety-teach back done. Pt denies any chest pain,pain,sob,n&V or any acute distress. Discussed poc, pain mgmt, n/v, pt and mother verbalized understanding. Fall precaution in place. All safety measures in place. Bed alarmed, side rails x3. Call light within reach. Cont to monitor pt.
[2022-08-19 23:33] VITALS: BP_SYST 111
--- NOTE | 2022-08-19 23:33 | NUR ---
ROUNDS; -Pt is resting comfortably. Pt denies any chest pain,pain,sob,or any acute distress. IVF infusing well. VS stable. All side rails padded. Side rails x2. Call light within reach. Cont to monitor p
--- NOTE | 2022-08-20 04:00 | NUR ---
ROUNDS; -Pt is resting comfortably. NO s/s any chest pain,pain,sob,or any acute distress noted. IVF infusing well. All side rails padded. Side rails x2. Call light within reach. Cont to monitor pt.
[2022-08-20] MEDS: METOCLOPRAMIDE HCL 10 MG/2 ML VIAL IVP SCH ×3 (05:32→18:38)
--- NOTE | 2022-08-20 06:43 | NUR ---
CLOSING NOTES; -Pt is asleep. No s/s acute distress noted. Pt's condition stable. Pt denies n/v and pain entire shift. All safety measures in place. Bed alarmed, side rails x3. Call light within reach. Will endorse to next nurse to cont care.
[2022-08-20 07:37] LABS: BASOPHILS % (AUTO) 0.5 % (0.0-2.0); EOSINOPHILS # (AUTO) 0.1 K/uL (0.0-0.4); EOSINOPHILS % (AUTO) 1.3 % (0.0-4.0); HEMATOCRIT 37.9 % (36-48); HEMOGLOBIN 12.9 g/dL (12.0-16.0); LYMPHOCYTES # (AUTO) 2.1 K/uL (1.0-5.5); LYMPHOCYTES % (AUTO) 27.5 % (20.5-51.5); MEAN CORPUSCULAR HEMOGLOBIN 30 pg (27-31); MEAN CORPUSCULAR HGB CONC 34 % (32-36); MEAN CORPUSCULAR VOLUME 88 fL (79.0-98.0); MONOCYTES # (AUTO) 0.6 K/uL (0.0-1.0); MONOCYTES % (AUTO) 7.9 % (1.7-9.3); NEUTROPHILS # (AUTO) 4.9 K/uL (1.8-7.7); NEUTROPHILS % (AUTO) 62.8 % (40.0-70.0); PLATELET COUNT (AUTO) 259 K/uL (130-430); RED BLOOD CELL COUNT(AUTO) 4.28 MIL/uL (4.2-6.2); RED CELL DISTRIBUTION WIDTH 15.1 % (9.0-15.0); WHITE BLOOD COUNT (AUTO) 7.8 K/uL (4.8-10.8)
[2022-08-20 08:09] LABS: CALCIUM 9.2 mg/dL (8.4-11.0); CREATININE 0.73 mg/dL (0.55-1.30)
[2022-08-20 08:26] VITALS: BP_SYST 112
[2022-08-20] MEDS: PANTOPRAZOLE SODIUM 40 MG/VIAL (PROTONIX) IVP SCH (10:26)
[2022-08-20 10:30] VITALS: BP_SYST 112
[2022-08-20] MEDS: SERTRALINE HCL 50 MG TABLET PO SCH (10:37)
[2022-08-20] MEDS: NACL 0.9% 1,000 ML IV SCH ×3 (11:00→22:53)
[2022-08-20 11:07] LABS: ANTI-SMOOTH MUSCLE AB 6 Units (0-19)
[2022-08-20 11:47] VITALS: BP_SYST 112
--- NOTE | 2022-08-20 13:17 | NUR ---
Nutrition F/U Director Part reviewed pts current EMR including diet hx, physician notes, nursing notes, pertinent labs/meds/procedures, care trends and care activity. Admitting Diagnosis Vomiting, Abd pain Medical History Comment: Per EMR: 42 YOF who presented to the ER w/ C/O nausea and intractable vomiting for the past few days. Abd pain is diffuse, constant, and moderate intensity associated w/ diarrhea. Was recently hospitalized and underwent colonoscopy. Pt was told her symptoms could be IBS, GERD, cyclical vomiting syndrome or colitis. Denies melena hematemesis. - PMH: IBS - Past Sx: Cholecystectomy, tummy [facility] surgery 08/19 per MD Joyce: Pt has nausea and vomiting whenever she eats. Gastric emptying study pending consulted GI. Could be cyclical vomiting syndrome vs. Gastroparesis vs. Hepatobiliary process. MRCP negative. EGD and [place] records from [place] 1 month ago were normal. Subjective Information Director Part spoke w/ pt at bedside. Pt reported feeling OK only when she doesnt eat. Pt says shes currently NPO d/t an upcoming procedure/test even though theres still an active diet order. Pt requested full liquid diet w/ decaf iced tea for every meal. Pt is currently not meeting nutritional needs. Current Diet Order/Nutrition Support Low fat diet x 1 day Patient/Significant Other Able To Verbalize Pertinent Medications NS @ 100mL, Reglan, Protonix, K-Dur, Morphine, Zofran Pertinent Labs Na 139WNL, K 3.5WNL, BUN 4L (trending down) Height (Feet) 5 feet Height (Inches) 6.00 inches Weight (Pounds) 143 pounds (Stable since 08/17) Patient Weight 64.864 kg Body Mass Index 23.08 kg/m2 Usual Weight 163 lbs %UBW 88 %IBW 110 [place]/Adjusted Body Weight 130#/59kg Recent Weight Change Yes - 20# unintentional wt loss within 3 months (12% wt change) Weight Status Appropriate Gastrointestinal Symptoms None Last BM Aug 19, 2022 Food Allergies No - per pt report Usual Diet At Home Regular per RN screen Skin Integrity Comment: Lamonte: 20 (08/19) Wounds: None noted (08/19) Edema: None noted (08/19) Current % PO Poor; avg 29% x 9 meals Estimated Energy Expenditure (kcals/day) 8699-7552 (25-30 kcal/kg CBW [65kg] d/t adult maintenance) Estimated Protein Required (g/day) 52-65 (0.8-1 g/kg CBW d/t adult maintenance) Estimated Fluid Required (l/day) 1.6-2.0 (1mL/kcal for adult maintenance) Problem/Etiology/Signs/Symptoms (MODIFIED) * Complicated GI function R/T frequent nausea and vomiting AEB pt unable to keep foods down whenever she eats (*New). * Inadequate oral intake R/T restrictive diet order AEB pt requesting for solid foods and not liquids and avg 50% PO intakes (*Resolved). Expected Outcomes/Goals * Monitor appetite and PO intakes w/ goal of pt meeting >75% of estimated nutritional needs, nutrition-related labs trending WNL, controlled BM regime, skin integrity w/ wt. maintenance. Dietitian Recommendations * Full Liquid diet s/p procedure. * If pts PO intake does not improve >3-5 days, consider alternative means of nutrition. Follow Up High Risk: F/U in 2-3days GS, MPH, RD
--- NOTE | 2022-08-20 13:32 | NUR ---
Dietitian Recommendations * Full Liquid diet s/p procedure. * If pts PO intake does not improve >3-5 days, consider alternative means of nutrition. Submitted for NIR Ariza by Caprice Steele, MPH, RD Please see Nutrition Assessment for further details. Thanks!
[2022-08-20 16:59] VITALS: BP_SYST 106
--- NOTE | 2022-08-20 19:30 | NUR ---
OPENING NOTES Patient resting in bed no s/s pain or distress noted. Respirations even and unlabored - head of bed elevated. IV site patent no s/s redness infection or infiltration. Bed locked and in lowest position. Call light within reach.
[2022-08-20 20:00] VITALS: BP_SYST 113
[2022-08-20] MEDS: LORazepam 2 MG/ML VIAL IVP PRN (21:14)
[2022-08-21 00:54] VITALS: BP_SYST 94
[2022-08-21] MEDS: METOCLOPRAMIDE HCL 10 MG/2 ML VIAL IVP SCH ×4 (00:59→18:09)
[2022-08-21 08:00] VITALS: BP_SYST 124
--- NOTE | 2022-08-21 08:15 | NUR ---
OPENING NOTE; PT SLEEPING IN BED, BREATHING NON-LABORED AND REGULAR ON ROOM AIR. NO S/S OF ANY PAIN OR DISCOMFORT. IVF RUNNING ORDERED WITH IV SITE REMAIN INTACT AND PATENT. NO IV INFILTRATION OR INFECTION NOTED. SAFETY PRECAUTION IN PLACED. CALL LIGHT WITHIN REACH. NM BEBETO SAID SHE WILL HAVE GASTRIC EMPTYING STUDY AROUND NOON SO CONT TO KEEP NPO STATUS. WILL CONT TO MONITOR ANY CHANGES.
[2022-08-21] MEDS: PANTOPRAZOLE SODIUM 40 MG/VIAL (PROTONIX) IVP SCH (08:41)
[2022-08-21 11:27] VITALS: BP_SYST 115
[2022-08-21] MEDS: NACL 0.9% 1,000 ML IV SCH ×2 (11:30→21:30)
[2022-08-21 12:06] LABS: CHLAMYDIA AB, IgG 1.12 ratio (0.00-0.90)
[2022-08-21 12:11] LABS: BASOPHILS % (AUTO) 0.5 % (0.0-2.0); EOSINOPHILS # (AUTO) 0.1 K/uL (0.0-0.4); HEMATOCRIT 37.8 % (36-48); HEMOGLOBIN 12.8 g/dL (12.0-16.0); LYMPHOCYTES # (AUTO) 2.1 K/uL (1.0-5.5); LYMPHOCYTES % (AUTO) 31.4 % (20.5-51.5); MEAN CORPUSCULAR HEMOGLOBIN 30 pg (27-31); MEAN CORPUSCULAR HGB CONC 34 % (32-36); MEAN CORPUSCULAR VOLUME 88 fL (79.0-98.0); MONOCYTES # (AUTO) 0.5 K/uL (0.0-1.0); MONOCYTES % (AUTO) 7.4 % (1.7-9.3); NEUTROPHILS # (AUTO) 4.1 K/uL (1.8-7.7); NEUTROPHILS % (AUTO) 59.7 % (40.0-70.0); PLATELET COUNT (AUTO) 250 K/uL (130-430); RED BLOOD CELL COUNT(AUTO) 4.28 MIL/uL (4.2-6.2); WHITE BLOOD COUNT (AUTO) 6.8 K/uL (4.8-10.8)
[2022-08-21 12:32] LABS: ALBUMIN 3.1 g/dL (3.4-4.8); CALCIUM 8.6 mg/dL (8.4-11.0); CREATININE 0.7 mg/dL (0.55-1.30); TOTAL BILIRUBIN 0.6 mg/dL (0.0-1.0)
[2022-08-21 14:27] LABS: HEPATITIS C VIRUS AB Negative <0.8 s/co (0.0-0.7)
[2022-08-21 14:33] LABS: HEPATITIS C VIRUS AB Negative <0.8 s/co (0.0-0.7)
[2022-08-21] MEDS: SERTRALINE HCL 50 MG TABLET PO SCH (15:28)
[2022-08-21 15:50] VITALS: BP_SYST 117
--- NOTE | 2022-08-21 18:41 | NUR ---
CLOSING NOTE; PT RESTING IN BED, BREATHING NON-LABORED AND REGULAR ON ROOM AIR. IVF RUNNING ORDERED WITH IV SITE REMAIN INTACT AND PATENT. NO IV INFILTRATION OR INFECTION NOTED. SAFETY PRECAUTION IN PLACED. CALL LIGHT WITHIN REACH. NM THE RESULT OF GASTRIC EMPTYING STUDY IS PENDING. WILL ENDORSE CARE TO ROCK LATHER NURSE.
[2022-08-21 20:00] VITALS: BP_SYST 117
[2022-08-21] MEDS: LORazepam 2 MG/ML VIAL IVP PRN (20:44)
[2022-08-22] VITALS: BP_SYST 127
[2022-08-22] MEDS: METOCLOPRAMIDE HCL 10 MG/2 ML VIAL IVP SCH ×5 (06:00→22:56)
--- NOTE | 2022-08-22 07:05 | NUR ---
multiple IV attempts made due to IV site infiltration - no success attempted by 5 RNs, no success
--- NOTE | 2022-08-22 07:08 | NUR ---
CLOSING NOTES Patient resting in bed no s/s pain or distress noted. Respirations even and unlabored - head of bed elevated. No IV access, multiple attempts made throughout shift. Bed locked and in lowest position. Call light within reach.
[2022-08-22] MEDS: NACL 0.9% 1,000 ML IV SCH ×2 (07:30→17:05)
--- NOTE | 2022-08-22 07:30 | NUR ---
OPENING NOTE; PT SLEEPING IN BED, NO S/S PAIN OR DISCOMFORT NOTED. BED IS LOCKED AND AT LOW POSITION. CALL LIGHT WITHIN REACH. NO IV ACCESS. WILL CONT TO MONITOR FOR ANY CHANGES
[2022-08-22 07:41] LABS: BASOPHILS % (AUTO) 0.3 % (0.0-2.0); EOSINOPHILS # (AUTO) 0.1 K/uL (0.0-0.4); EOSINOPHILS % (AUTO) 0.6 % (0.0-4.0); HEMATOCRIT 39.3 % (36-48); HEMOGLOBIN 13.4 g/dL (12.0-16.0); LYMPHOCYTES # (AUTO) 1.7 K/uL (1.0-5.5); LYMPHOCYTES % (AUTO) 15.2 % (20.5-51.5); MEAN CORPUSCULAR HEMOGLOBIN 30 pg (27-31); MEAN CORPUSCULAR HGB CONC 34 % (32-36); MEAN CORPUSCULAR VOLUME 88 fL (79.0-98.0); MONOCYTES # (AUTO) 0.7 K/uL (0.0-1.0); MONOCYTES % (AUTO) 6.2 % (1.7-9.3); NEUTROPHILS # (AUTO) 8.4 K/uL (1.8-7.7); NEUTROPHILS % (AUTO) 77.7 % (40.0-70.0); PLATELET COUNT (AUTO) 248 K/uL (130-430); RED BLOOD CELL COUNT(AUTO) 4.46 MIL/uL (4.2-6.2); RED CELL DISTRIBUTION WIDTH 14.6 % (9.0-15.0); WHITE BLOOD COUNT (AUTO) 10.9 K/uL (4.8-10.8)
[2022-08-22 08:00] VITALS: BP_SYST 134
--- NOTE | 2022-08-22 08:00 | NUR ---
MD ROUNDS; MADE AWARE THAT PT HAS NO IV ACCESS.
[2022-08-22 08:06] LABS: ALBUMIN 3.4 g/dL (3.4-4.8); CALCIUM 8.9 mg/dL (8.4-11.0); CREATININE 0.6 mg/dL (0.55-1.30); PHOSPHORUS 3.6 mg/dL (2.7-4.5); TOTAL BILIRUBIN 0.8 mg/dL (0.0-1.0)
[2022-08-22] MEDS ORDERED: ONDA-8 TL (08:07)
[2022-08-22] MEDS ORDERED: PRO40 PO (08:07)
[2022-08-22] MEDS ORDERED: METO-290 PO (08:07)
[2022-08-22] MEDS: PANTOPRAZOLE SODIUM 40 MG/VIAL (PROTONIX) IVP SCH (09:00)
[2022-08-22] MEDS: SERTRALINE HCL 50 MG TABLET PO SCH (10:21)
[2022-08-22] MEDS: POTASSIUM CHLORIDE 20 MEQ TAB.PRT.SR PO PRN (10:21)
[2022-08-22 11:38] VITALS: BP_SYST 111
--- NOTE | 2022-08-22 11:50 | NUR ---
NOTES; PT RECEIVED DC INSTRUCTION AND SIGNED ON DC PAPER. PT'S MOM WILL COME AND PICK HER UP AROUND 5PM. CHARGE NURSE MADE AWARE.
[2022-08-22 15:09] VITALS: BP_SYST 111
--- NOTE | 2022-08-22 15:30 | NUR ---
Met with mother at bedside who wanted to discuss any services that the patient may be eligible for at home. I discussed home health services and explained what they are. I advised the mother that I can have nursing or case management call the drPetr to get an order for home health services for a safety eval. I spoke with ADI Mcrae and ADI Berry to inquire about HH services. Nursing will call to request a HH order. The bedside nurse advised that if a HH order is granted, the CM will call to let her know that it has been arranged.
--- NOTE | 2022-08-22 15:38 | NUR ---
NOTES; SPOKE WITH LANDON Ascencio THAT ONCE H/H IS ARRANGED, THIS NURSE WILL BE NOTIFIED.
[2022-08-22 16:00] VITALS: BP_SYST 119
--- NOTE | 2022-08-22 16:50 | NUR ---
NOTES; PT IS THROWING UP. PT IS SITTING UP. WILL PAGE DR. LAM
--- NOTE | 2022-08-22 16:56 | NUR ---
CM faxed HH order to [facility] f# [phone]. Contracted home health will contact patient
--- NOTE | 2022-08-22 17:00 | NUR ---
PTS THROWING UP, NO IV ACCESS. MULTIPLE IV ATTEMPTS MADE, UNSUCCESSFUL.
--- NOTE | 2022-08-22 17:05 | NUR ---
PAGED DR. LAM, LEFT VOICE MESSAGE
--- NOTE | 2022-08-22 17:30 | NUR ---
PT C/O ABD PAIN. WILL PAGE
--- NOTE | 2022-08-22 18:28 | NUR ---
SPOKE WITH DR. LAM, RECEIVED NEW ORDERS.
[2022-08-22] MEDS ORDERED: KETOROLAC TROMETHAMINE 30 MG VIAL IM PRN (18:30)
--- NOTE | 2022-08-22 19:15 | NUR ---
CLOSING NOTE; ADMINISTERED TORADOL IM FOR ABDOMINAL PAIN. MIDLINE CONSENT OBTAINED. SAWYER HELPER MADE AWARE. PT VOMITED. ENCOURAGED PT TO KEEP HOB ELEVATED. PT SAID SHE WANTS TO TAKE SOME SLEEP. TURN OFF THE LIGHT PER PT REQUEST. NO IV ACCESS. BED IS LOCKED AND AT LOW POSITION. CALL LIGHT WITHIN REACH. ENDORSED BUSINESS DIVISION CHAIR NURSE FOR THE CONTINUITY OF CARE.
[2022-08-22 20:00] VITALS: BP_SYST 154
--- NOTE | 2022-08-22 20:44 | NUR ---
IV Insertion 20 Gauge angio placed on right foot. No signs of infiltration. Patient tolerated well. Primary nurse notified.
[2022-08-22] MEDS: ONDANSETRON HCL 4 MG/2 ML VIAL IVP PRN (20:51)
[2022-08-22] MEDS: LORazepam 2 MG/ML VIAL IVP PRN (21:26)
[2022-08-22] MEDS: MORPHINE 2 MG/ML INJ. SYRINGE IVP PRN (22:57)
[2022-08-22] MEDS ORDERED: KETOROLAC TROMETHAMINE 30 MG VIAL IVP PRN (23:15)
[2022-08-23 00:22] VITALS: BP_SYST 110
[2022-08-23] MEDS: LORazepam 2 MG/ML VIAL IVP PRN ×2 (01:43→21:15)
[2022-08-23] MEDS: NACL 0.9% 1,000 ML IV SCH ×3 (03:30→21:26)
[2022-08-23] MEDS: ONDANSETRON HCL 4 MG/2 ML VIAL IVP PRN ×3 (03:33→21:09)
[2022-08-23] MEDS: MORPHINE 2 MG/ML INJ. SYRINGE IVP PRN ×2 (05:26→18:42)
[2022-08-23] MEDS: METOCLOPRAMIDE HCL 10 MG/2 ML VIAL IVP SCH ×4 (05:26→23:32)
--- NOTE | 2022-08-23 06:40 | NUR ---
SHIFT NOTES: Patient was received from AM shift nurse at shift change. Patient is AA&Ox4 able to make needs known, with call light within reach. Patient was having episodes of N/V and was anxious and reporting pain and breathing rapidly. No PIV was noted at this time and patient was pending MIDLINE PLACEMENT. No PRN could be administered at this time, charge nurse aware, and warehouse delivery manager. Safety measures are in place will resume care. 2044: PIV was inserted 20G on the Left foot by warehouse delivery manager. PRN N/V Zofran was administered at this time. 2129: Patient is still very anxious PRN Ativan was administered. Patient is reporting pain will call . 2315: Called Dr. Joyce and new orders were received for PRN Pain relief. PRN Pain relief was administered with schedule Regalan. Patient is still having episodes of N/V. Will continue to monitor. 0200: Patient is still extremely anxious requesting PRN. PRN administered as ordered. 0345: Patient is still having N/V PRN Zofran and Toradol for Pain were administered at this time. Patient reports pain at 10/10. 0500: Scheduled N/V Regalan administered with PRN pain medication. Patient N/V has decreased some. 0600: Patient is in bed resting will differ further care to AM shift Nurse.
--- NOTE | 2022-08-23 07:30 | NUR ---
MORNING ROUNDS: PATIENT SLEEPING ON HER ABDOMEN DURING ROUNDS. IV FLUIDS ON GOING. CALL LIGHT WITH IN REACH. BED LOCKED AT LOWEST POSITION. NOT IN ANY DISTRESS.
[2022-08-23 08:20] VITALS: BP_SYST 122
[2022-08-23 08:26] LABS: ALBUMIN 3.4 g/dL (3.4-4.8); CALCIUM 9.6 mg/dL (8.4-11.0); CREATININE 0.71 mg/dL (0.55-1.30); PHOSPHORUS 4.8 mg/dL (2.7-4.5); TOTAL BILIRUBIN 0.7 mg/dL (0.0-1.0)
[2022-08-23 08:45] LABS: BASOPHILS % (AUTO) 0.1 % (0.0-2.0); HEMATOCRIT 40.7 % (36-48); LYMPHOCYTES # (AUTO) 0.9 K/uL (1.0-5.5); LYMPHOCYTES % (AUTO) 5.1 % (20.5-51.5); MEAN CORPUSCULAR HEMOGLOBIN 30 pg (27-31); MEAN CORPUSCULAR HGB CONC 34 % (32-36); MEAN CORPUSCULAR VOLUME 86 fL (79.0-98.0); MONOCYTES # (AUTO) 1.3 K/uL (0.0-1.0); MONOCYTES % (AUTO) 7.3 % (1.7-9.3); NEUTROPHILS # (AUTO) 15.3 K/uL (1.8-7.7); NEUTROPHILS % (AUTO) 87.5 % (40.0-70.0); PLATELET COUNT (AUTO) 260 K/uL (130-430); RED BLOOD CELL COUNT(AUTO) 4.73 MIL/uL (4.2-6.2); WHITE BLOOD COUNT (AUTO) 17.5 K/uL (4.8-10.8)
--- NOTE | 2022-08-23 09:20 | NUR ---
TELEMED PSYCHE: DR BHATT SPOKE WITH PATIENT VIA ZOOM.CONTINUE ZOLOFT AND ATIVAN ORDERED.
[2022-08-23] MEDS: SERTRALINE HCL 50 MG TABLET PO SCH (09:49)
[2022-08-23] MEDS: PANTOPRAZOLE SODIUM 40 MG/VIAL (PROTONIX) IVP SCH (09:49)
--- NOTE | 2022-08-23 09:49 | NUR ---
NAUSEA/VOMITING: DUE IV ZOFRAN GIVEN PER PATIENT'S REQUEST C/O VOMITING. NO PROBLEM.
[2022-08-23] MEDS ORDERED: LORA-259 PO ×2 (09:55→10:01)
[2022-08-23 10:18] VITALS: BP_SYST 123
[2022-08-23 10:21] LABS: BASOPHILS % (AUTO) 0.2 % (0.0-2.0); HEMATOCRIT 43.8 % (36-48); HEMOGLOBIN 14.9 g/dL (12.0-16.0); LYMPHOCYTES # (AUTO) 1.5 K/uL (1.0-5.5); LYMPHOCYTES % (AUTO) 7.6 % (20.5-51.5); MEAN CORPUSCULAR HEMOGLOBIN 30 pg (27-31); MEAN CORPUSCULAR HGB CONC 34 % (32-36); MEAN CORPUSCULAR VOLUME 87 fL (79.0-98.0); MONOCYTES # (AUTO) 1.7 K/uL (0.0-1.0); MONOCYTES % (AUTO) 8.7 % (1.7-9.3); NEUTROPHILS # (AUTO) 16.1 K/uL (1.8-7.7); NEUTROPHILS % (AUTO) 83.5 % (40.0-70.0); PLATELET COUNT (AUTO) 270 K/uL (130-430); RED BLOOD CELL COUNT(AUTO) 5.05 MIL/uL (4.2-6.2); WHITE BLOOD COUNT (AUTO) 19.3 K/uL (4.8-10.8)
--- NOTE | 2022-08-23 11:10 | NUR ---
HOLD DISCHARGE: HOLD DISCHARGE PER MD.WBC=19.
--- NOTE | 2022-08-23 11:39 | NUR ---
Nutrition F/U RD reviewed pts current EMR including diet hx, physician notes, nursing notes, pertinent labs/meds/procedures, care trends and care activity. Subjective Information Per LOS meeting and EMR review, pt will be DC today. Current Diet Order/Nutrition Support Low fat x 4 days % PO intake Poor avg of 43% x 5 meal records Last BM None documented Estimated Energy Expenditure (kcals/day) 2429-5095 (25-30 kcal/kg CBW [65kg] d/t adult maintenance) Estimated Protein Required (g/day) 52-65 (0.8-1 g/kg CBW d/t adult maintenance) Estimated Fluid Required (l/day) 1.6-2.0 (1mL/kcal for adult maintenance) Problem/Etiology/Signs/Symptoms (MODIFIED) * Complicated GI function R/T frequent nausea and vomiting AEB pt unable to keep foods down whenever she eats (*New). * Inadequate oral intake R/T restrictive diet order AEB pt requesting for solid foods and not liquids and avg 50% PO intakes (*Resolved). Expected Outcomes/Goals * Monitor appetite and PO intakes w/ goal of pt meeting >75% of estimated nutritional needs, nutrition-related labs trending WNL, controlled BM regime, skin integrity w/ wt. maintenance. Dietitian Recommendations * Continue low fat diet * Encourage good PO intakes WEI, MPH, RD
--- NOTE | 2022-08-23 11:40 | NUR ---
Dietitian Recommendations * Continue low fat diet * Encourage good PO intakes GS, MPH, RD Please refer to Nutrition F/U for further details. Thanks!
[2022-08-23 12:00] VITALS: BP_SYST 109
--- NOTE | 2022-08-23 14:36 | NUR ---
Following up to [facility] insurance phone#[phone] for h/h recommendation. for review and follow up. Addendum: 08/23/22 at 1508 by Kong [place] follow-up with [facility] h/h phone#[phone]. for review and will follow up again.
[2022-08-23 16:00] VITALS: BP_SYST 118
--- NOTE | 2022-08-23 16:25 | NUR ---
Patient was been accepted for care by [facility]-[phone]
[2022-08-23 18:34] LABS: BILIRUBIN,URINE NEGATIVE (NEGATIVE); BLOOD, URINE NEGATIVE (NEGATIVE); CLARITY/URINE CLEAR (CLEAR); COLOR,URINE YELLOW (YELLOW); GLUCOSE,URINE NEGATIVE (NEGATIVE); KETONES,URINE 2+ (NEGATIVE); LEUKOCYTE ESTERASE ,URINE NEGATIVE (NEGATIVE); NITRITE, URINE NEGATIVE (NEGATIVE); PH,URINE 6.5 (5.0-8.0); PROTEIN URINE 1+ (NEGATIVE); UROBILINOGEN,URINE 0.2 (0.2-1.0)
--- NOTE | 2022-08-23 18:42 | NUR ---
PICC LINE NURSE: SPOKE WITH PICC LINE NURSE GINGER, WILL COME TO DO MIDLINE TO PATIENT.
--- NOTE | 2022-08-23 18:56 | NUR ---
END OF SHIFT: IV PAIN MEDS GIVEN PER PATIENT'S REQUEST. CONTINUE TO MONITOR. CALL LIGHT WITH IN REACH. BED LOCKED AT LOWEST POSITION. NOT IN ANY DISTRESS.
[2022-08-23 19:29] LABS: BACTERIA,URINE FEW /HPF (None Seen); MUCUS,URINE 3+ /LPF (None Seen); RBC,URINE NONE SEEN /HPF (0-3); WBC,URINE 0-3 /HPF (0-3)
[2022-08-23 20:00] VITALS: BP_SYST 115
[2022-08-23] MEDS: POTASSIUM CHLORIDE 20 MEQ TAB.PRT.SR PO PRN (21:09)
[2022-08-24 00:12] VITALS: BP_SYST 103
[2022-08-24] MEDS: NACL 0.9% 1,000 ML IV SCH (01:49)
[2022-08-24] MEDS: LORazepam 2 MG/ML VIAL IVP PRN (01:55)
[2022-08-24] MEDS: ONDANSETRON HCL 4 MG/2 ML VIAL IVP PRN ×2 (03:52→10:04)
[2022-08-24] MEDS: MORPHINE 2 MG/ML INJ. SYRINGE IVP PRN ×2 (03:54→10:12)
[2022-08-24] MEDS: METOCLOPRAMIDE HCL 10 MG/2 ML VIAL IVP SCH ×2 (05:40→12:06)
[2022-08-24 08:20] LABS: BASOPHILS # (AUTO) 0.1 K/uL (0.0-0.2); BASOPHILS % (AUTO) 0.9 % (0.0-2.0); HEMATOCRIT 37.7 % (36-48); HEMOGLOBIN 12.9 g/dL (12.0-16.0); LYMPHOCYTES # (AUTO) 0.8 K/uL (1.0-5.5); LYMPHOCYTES % (AUTO) 8.5 % (20.5-51.5); MEAN CORPUSCULAR HEMOGLOBIN 30 pg (27-31); MEAN CORPUSCULAR HGB CONC 34 % (32-36); MEAN CORPUSCULAR VOLUME 88 fL (79.0-98.0); MONOCYTES # (AUTO) 0.9 K/uL (0.0-1.0); MONOCYTES % (AUTO) 9.3 % (1.7-9.3); NEUTROPHILS # (AUTO) 7.5 K/uL (1.8-7.7); NEUTROPHILS % (AUTO) 81.3 % (40.0-70.0); PLATELET COUNT (AUTO) 195 K/uL (130-430); WHITE BLOOD COUNT (AUTO) 9.2 K/uL (4.8-10.8)
[2022-08-24 08:22] VITALS: BP_SYST 93
[2022-08-24 08:35] LABS: CALCIUM 9.1 mg/dL (8.4-11.0); CREATININE 0.8 mg/dL (0.55-1.30); PHOSPHORUS 2.7 mg/dL (2.7-4.5)
[2022-08-24] MEDS: SERTRALINE HCL 50 MG TABLET PO SCH (09:00)
[2022-08-24 10:03] VITALS: BP_SYST 93
[2022-08-24] MEDS: PANTOPRAZOLE SODIUM 40 MG/VIAL (PROTONIX) IVP SCH (10:03)
[2022-08-24 11:30] VITALS: BP_SYST 137
[2022-08-24 11:38] VITALS: BP_SYST 137
== END 2022-08-24 13:25 | disposition home health service (06) | DRG 254 ==
LOC: SED 01:10 → SMU 04:23
PROVIDERS: ADMIT Family Medicine; ATTEND Family Medicine
DX: K31.84 Gastroparesis (principal); K85.90 Acute pancreatitis without necrosis or infection, unspecified; R65.10 Systemic inflammatory response syndrome (SIRS) of non-infectious origin without acute organ dysfunction; E44.0 Moderate protein-calorie malnutrition; E87.1 Hypo-osmolality and hyponatremia; E86.0 Dehydration; K21.9 Gastro-esophageal reflux disease without esophagitis; E87.6 Hypokalemia; K58.0 Irritable bowel syndrome with diarrhea; Z20.822 Contact with and (suspected) exposure to COVID-19; Z68.23 Body mass index [BMI] 23.0-23.9, adult; R11.15 Cyclical vomiting syndrome unrelated to migraine; F41.1 Generalized anxiety disorder; Z90.49 Acquired absence of other specified parts of digestive tract
CPT/HCPCS: 36415; 71045; 74181; 76376; 78264-TC; 80048; 80053; 80074; 80076; 80307; 81000; 81003; 82103; 82390; 82728; 82787; 83516; 83540; 83550; 83690; 83735; 84100; 84703; 85025; 85610-TC; 86038; 86631; 86803; 87040; 87081; 87186-TC; 96361; 96365; 96372; 96375; 99285; A9541; C9113; G0480; G0481; J1630; J1885; J2060; J2270; J2405; J2543; J2765; J3480; J7030